=== PATIENT | female | born 1985 | race Caucasian/White ===

== ENCOUNTER 2022-08-15 10:00 | Emergency (ER) | payer SELFPAY ==
[~2022-08-15] VITALS: Ht 165.1 cm; Wt 70.3 kg
--- NOTE | 2022-08-15 11:04 | NUR ---
PT WAS EVALUATED BY DR TOVAR. PT WAS D/C'd TO HOME. D/C INSTRUCTIONS GIVEN TO THE PT BY DR TOVAR.
[2022-08-15 11:05] VITALS: BP 132/77
== END 2022-08-15 11:05 | disposition home or self-care (01) ==
LOC: ER 10:00
DX: M79.18 Myalgia, other site (principal); M79.604 Pain in right leg; W10.8XXA Fall (on) (from) other stairs and steps, initial encounter; Y92.89 Other specified places as the place of occurrence of the external cause
CPT/HCPCS: A4663